=== PATIENT | male | born 1940 | race Asian ===

== ENCOUNTER 2019-01-26 15:44 | Emergency (ER) | payer MEDICARE, BC ==
[~2019-01-26] VITALS: Ht 162.6 cm; Wt 69.4 kg
[2019-01-26] MEDS ORDERED: OLME20TA13 PO (15:59)
[2019-01-26] MEDS ORDERED: ATOR20TA PO (16:00)
[2019-01-26] MEDS ORDERED: METO-356 PO (16:00)
[2019-01-26] MEDS ORDERED: TAMS-3 PO (16:00)
--- NOTE | 2019-01-26 16:00 | NUR ---
Dr. Leonardo at the bedside for MSE.
--- NOTE | 2019-01-26 16:37 | NUR ---
Pt returned from CT head. Pt stable and nad noted upon returning.
[2019-01-26] MEDS ORDERED: NEOMY/BACITRA/POLYMYXIN B OINT UD PACKET TP ONE ×2 (17:00→17:06)
[2019-01-26] MEDS ORDERED: TDAP DIPH,PERTUSS,TET VAC/PF 0.5 ML DISP.SYRIN IM ONE ×2 (17:00→17:10)
--- NOTE | 2019-01-26 17:53 | NUR ---
Patient discharged to home in stable conditon. Written and verbal after care instructions given. Patient verbalizes understanding of instructions. Head bandaged and kept c/d/i.
== END 2019-01-26 17:57 | disposition home or self-care (01) ==
LOC: ER 15:46
DX: S00.01XA Abrasion of scalp, initial encounter (principal); I10 Essential (primary) hypertension; M54.2 Cervicalgia; Z79.899 Other long term (current) drug therapy; W21.04XA Struck by golf ball, initial encounter; Y93.53 Activity, golf; Y92.89 Other specified places as the place of occurrence of the external cause; Y99.8 Other external cause status
CPT/HCPCS: 70450; 72125; 90715; A4217; A4663